=== PATIENT | male | born 1975 | race Caucasian/White ===

== ENCOUNTER 2018-05-31 13:33 | Emergency (ER) | payer BC ==
[~2018-05-31] VITALS: Ht 183 cm; Wt 106.8 kg
[2018-05-31 13:44] VITALS: BP 151/62; TEMP 97.1
[2018-05-31] MEDS ORDERED: NORCO 325 MG-51 TAB PO (14:39)
[2018-05-31 15:32] LABS: COLLECTION METHOD CLEAN CATCH
[2018-05-31 15:40] LABS: MUCOUS Present /lpf; PH 6 (5-8); SQUAMOUS EPITHELIAL None Seen /hpf; URINE APPEARANCE Clear; URINE BACTERIA None Seen /hpf; URINE BILIRUBIN Negative (NEGATIVE); URINE BLOOD Negative (NEGATIVE); URINE COLOR Yellow; URINE GLUCOSE Negative (NEGATIVE); URINE KETONE Negative (NEGATIVE); URINE LEUKOCYTE ESTERASE Negative (NEGATIVE); URINE NITRATE Negative (NEGATIVE); URINE PROTEIN(semi-quant) Negative (NEGATIVE); URINE RBC 0-2 /hpf; URINE UROBILINOGEN Negative (NEGATIVE)
[2018-05-31 16:02] VITALS: PULSE 68
== END 2018-05-31 16:03 | disposition home or self-care (01) ==
LOC: COL.ER 13:33
PROVIDERS: Nurse Practitioner
DX: M54.5 Low back pain (principal)
CPT/HCPCS: J1885